=== PATIENT | male | born 1960 ===

== ENCOUNTER 2018-09-14 15:27 | Day surgery (SDC) | payer OTHER ==
[2018-09-14] MEDS ORDERED: fentaNYL 100 MCG/2 ML INJ IVP ONE (15:33)
[2018-09-14] MEDS ORDERED: TDAP ADULT 0.5 ML INJ (BOOSTRIX) IM ONE (15:34)
[2018-09-14] MEDS ORDERED: NS 1,000 ML IV ONE (15:34)
--- NOTE | 2018-09-14 15:36 | EDPHY ---
H & P Time Seen by Provider: 09/14/18 15:33 HPI/ROS: CHIEF COMPLAINT: Cut hand with table saw HISTORY OF PRESENT ILLNESS: This is a 57-year-old male in general good health who presents shortly after cutting 3 fingers on his left hand with a table saw. He was trying to restore a pop-up camper. He is right-hand dominant. The involved fingers are his long finger, ring finger, and small finger. He denies other injuries. REVIEW OF SYSTEMS: A ten system review of systems was performed and is negative with the exception of the items mentioned in the HPI. Past medical history: Negative Past surgical history: Negative Social history: He lives with his . He drinks 2 glasses of wine nightly. He quit smoking cigarettes 11 years ago. He works in [employer] for a [employer]. He is originally from [place], has lived in the [place] for 25 years. General Appearance: Alert. Vital signs reviewed. Focused exam performed. BP 154/86 at triage. Respiratory: Lungs are clear to auscultation; no wheezes, rales, or rhonchi. Cardiovascular: Regular rate and rhythm; no murmur, rub, or gallop. Gastrointestinal: Abdomen is soft and nontender, no masses or organomegaly, bowel sounds normal. Skin: Warm and diaphoretic on arrival, no rashes on exposed skin, normal color. Extremities: 4 cm laceration on the palmar aspect of the left long finger distally extending from DIP the length of the pulp. 1/2 cm laceration on the medial distal aspect of the left small finger. Partial amputation of the distal ring finger involving the DIP joint--oblique 4 cm laceration. Mallet type deformity suggesting injury to extensor tendon of the left ring finger, full flexion at MCP, PIP, DIP left long finger but unable to extend at DIP. Nail involvement on the left ring finger. Decreased 2 point discrimination distal left ring finger. Otherwise sensation intact to light touch over the digits of the left hand. FAROM left wrist, elbow, shoulder. Pulses: Brisk capillary refill all digits of left hand except for left ring finger which has slightly sluggish cap refill. Two plus radial pulse left. Neurological: Alert and oriented. Moving all four extremities easily and equally. Psychiatric: Normal affect. (Babs Davila) Constitutional: Initial Vital Signs Temperature (C) 36.6 C 09/14/18 15:31 Heart Rate 64 09/14/18 15:31 Respiratory Rate 16 09/14/18 15:31 Blood Pressure 154/86 H 09/14/18 15:31 O2 Sat (%) 96 09/14/18 15:31 O2 Delivery Mode Room Air Allergies/Adverse Reactions: No Known Allergies Allergy (Unverified 09/14/18 15:36) Home Medications: Medication Instructions Recorded NK [No Known Home Meds] 09/14/18 Medical Decision Making ED Course/Re-evaluation: 57-year-old male table saw injury to his left, non dominant, hand. He has partial amputation of the distal ring finger with bone involved and extensor tendon involvement. He has a laceration and, I believe, a tuft fracture of the long finger and a small fracture on the pinky finger. No other tendon injuries identified. No apparent vascular injuries. I spoke with Dr. Fox, hand surgeon, who would like to evaluate this patient in the emergency department at [facility]. The patient received 1 L IV normal saline, fentanyl 100 mcg IV, Ancef 1 g IV, and a Boostrix tetanus update in the emergency department at [facility]. His hand was wrapped in sterile gauze soaked in saline, covered with Kerlix. His will drive him to the emergency department. He has been advised that he should not eat or drink anything EN route. He last ate around 12 :30 noon. He remained stable while in the department. (Babs Davila) Differential Diagnosis: I considered a differential diagnosis that includes but is not limited to amputation either complete or partial, fracture, dislocation, tendon injury, vascular injury, nerve injury. (Babs Davila) - Data Points Medications Given: Discontinued Medications Diphtheria/Tetanus/Acell Pertussis (Boostrix) 0.5 ml IM .ONCE ONE Stop: 09/14/18 15:35 Last Admin: 09/14/18 15:47 Dose: 0.5 ml Fentanyl (Sublimaze) 100 mcg IVP EDNOW ONE Stop: 09/14/18 15:34 Last Admin: 09/14/18 15:43 Dose: 100 mcg Cefazolin Sodium/Dextrose (Ancef 1 Gm (Premix)) 50 mls @ 200 mls/hr IV EDNOW ONE PRN Reason: Protocol Stop: 09/14/18 15:48 Last Admin: 09/14/18 16:00 Dose: 50 mls Sodium Chloride (Ns) 1,000 mls @ 0 mls/hr IV EDNOW ONE; Wide Open PRN Reason: Protocol Stop: 09/14/18 15:35 Last Admin: 09/14/18 15:40 Dose: 1,000 mls Cefazolin Sodium/Dextrose (Ancef 1 Gm (Premix)) 50 mls @ 200 mls/hr IV ONCALL ONE PRN Reason: Protocol Stop: 09/14/18 19:05 Last Admin: 09/14/18 19:03 Dose: 50 mls Departure - Departure Disposition: To OP Cath/Surgery Clinical Impression: Partial traumatic transphalangeal amputation of finger Qualifiers: Encounter type: initial encounter Qualified Code(s): S68.629A - Partial traumatic transphalangeal amputation of unspecified finger, initial encounter Finger laceration involving tendon Qualifiers: Encounter type: initial encounter Qualified Code(s): S61.219A - Laceration without foreign body of unspecified finger without damage to nail, initial encounter Finger laceration Qualifiers: Encounter type: initial encounter Finger: little finger Damage to nail status: without damage Foreign body presence: without foreign body Laterality: left Qualified Code(s): S61.217A - Laceration without foreign body of left little finger without damage to nail, initial encounter Condition: Good
[2018-09-14] MEDS ORDERED: NS 100 ML BAG IV ONE (15:39)
[2018-09-14] MEDS ORDERED: ceFAZolin 1 GM VIAL ONE (15:39)
--- NOTE | 2018-09-14 17:06 | EDPHY ---
H & P Stated Complaint: cut fingers with saw Time Seen by Provider: 09/14/18 15:33 HPI/ROS: CHIEF COMPLAINT: Partial amputation HISTORY OF PRESENT ILLNESS: Patient is a 57-year-old man who comes to the emergency department complaining of partial amputation and finger laceration to his left hand. He was injured while using a table saw few hours ago. He initially went to the free-standing emergency department where x-rays were done. He was also given tetanus and antibiotics. They consulted hand surgeon on-call Dr. Fox who requests the patient come here for evaluation and repair possibly in the OR. Severity: Severe Modifying factors: None REVIEW OF SYSTEMS: Constitutional: denies: chills, fever, recent illness, recent injury EENTM: denies: blurred vision, double vision, nose congestion Respiratory: denies: cough, shortness of breath Cardiac: denies: chest pain, irregular heart rate, lightheadedness, palpitations Gastrointestinal/Abdominal: denies: abdominal pain, diarrhea, nausea, vomiting, blood streaked stools Genitourinary: denies: dysuria, frequency, hematuria, pain Musculoskeletal: See HPI Skin: See HPI Neurological: denies: headache, numbness, paresthesia, tingling, dizziness, weakness Hematologic/Lymphatic: denies: blood clots, easy bleeding, easy bruising Immunologic/allergic: denies: HIV/AIDS, transplant 10 systems reviewed and negative except as noted EXAM: GENERAL: Well-appearing, well-nourished and in no acute distress. HEAD: Atraumatic, normocephalic. EYES: Pupils equal round and reactive to light, extraocular movements intact, sclera anicteric, conjunctiva are normal. ENT: oropharynx clear without exudates. Moist mucous membranes. NECK: Normal range of motion, supple without lymphadenopathy or JVD. LUNGS: Breath sounds clear HEART: Regular rate and rhythm ABDOMEN: Soft, nontender, normoactive bowel sounds. No guarding, no rebound. No masses appreciated. BACK: No CVA tenderness EXTREMITIES: Left hand currently dressed with gauze. Left intact. No wrist or elbow injury. No other injuries. NEUROLOGICAL: Cranial nerves II through XII grossly intact. Normal speech, normal gait. 5/5 strength, normal movement in all extremities, normal sensation , normal reflexes PSYCH: Normal mood, normal affect. SKIN: See above Source: Patient Exam Limitations: No limitations - Personal History Current Tetanus Diphtheria and Acellular Pertussis (TDAP): No - Medical/Surgical History Hx Asthma: No Hx Chronic Respiratory Disease: No Hx Diabetes: No Hx Cardiac Disease: No Hx Renal Disease: No Hx Cirrhosis: No Hx Alcoholism: No Hx HIV/AIDS: No Hx Splenectomy or Spleen Trauma: No Other PMH: none - Family History Significant Family History: No pertinent family hx - Social History Smoking Status: Never smoked Alcohol Use: None Constitutional: Initial Vital Signs Temperature (C) 36.6 C 09/14/18 15:31 Heart Rate 64 09/14/18 15:31 Respiratory Rate 16 09/14/18 15:31 Blood Pressure 154/86 H 09/14/18 15:31 O2 Sat (%) 96 09/14/18 15:31 O2 Delivery Mode Room Air Allergies/Adverse Reactions: No Known Allergies Allergy (Unverified 09/14/18 15:36) Home Medications: Medication Instructions Recorded NK [No Known Home Meds] 09/14/18 Medical Decision Making - Diagnostics Imaging Results: Imaging Impressions Hand X-Ray 09/14/18 15:34 Impression: 1. Fracture fragments ventral aspect of the third distal phalanx. 2. Fracture fragments along the dorsal aspect fourth digit around the DIP joint. 3. Flexion of the fourth digit at the DIP joint probably from extensor tendon injury. Imaging: Discussed imaging studies w/ call or contact centre manager Radiologist ED Course/Re-evaluation: Contacted Dr. Fox who was on his way to evaluate. He requests the patient remain NPO. 5:50 p.m. the patient seen by Dr. Fox who will plan to take him to the OR. Differential Diagnosis: Partial list of the Differential diagnosis considered include but were not limited to; laceration, fracture, vascular injury, nerve injury and although unlikely based on the history and physical exam, I also considered infection. - Data Points Medications Given: Discontinued Medications Diphtheria/Tetanus/Acell Pertussis (Boostrix) 0.5 ml IM .ONCE ONE Stop: 09/14/18 15:35 Last Admin: 09/14/18 15:47 Dose: 0.5 ml Fentanyl (Sublimaze) 100 mcg IVP EDNOW ONE Stop: 09/14/18 15:34 Last Admin: 09/14/18 15:43 Dose: 100 mcg Cefazolin Sodium/Dextrose (Ancef 1 Gm (Premix)) 50 mls @ 200 mls/hr IV EDNOW ONE PRN Reason: Protocol Stop: 09/14/18 15:48 Last Admin: 09/14/18 16:00 Dose: 50 mls Sodium Chloride (Ns) 1,000 mls @ 0 mls/hr IV EDNOW ONE; Wide Open PRN Reason: Protocol Stop: 09/14/18 15:35 Last Admin: 09/14/18 15:40 Dose: 1,000 mls Departure - Departure Disposition: To OP Cath/Surgery Clinical Impression: Partial traumatic transphalangeal amputation of finger Qualifiers: Encounter type: initial encounter Qualified Code(s): S68.629A - Partial traumatic transphalangeal amputation of unspecified finger, initial encounter Finger laceration involving tendon Qualifiers: Encounter type: initial encounter Qualified Code(s): S61.219A - Laceration without foreign body of unspecified finger without damage to nail, initial encounter Finger laceration Qualifiers: Encounter type: initial encounter Finger: little finger Damage to nail status: without damage Foreign body presence: without foreign body Laterality: left Qualified Code(s): S61.217A - Laceration without foreign body of left little finger without damage to nail, initial encounter Condition: Good
--- NOTE | 2018-09-14 18:51 | PDHPUP ---
History & Physical Update H&P update statement: This history and physical update is based on an assessment of the patient which was completed after admission or registration (within 24 hours), but prior to the surgery/procedure. H&P update: H&P reviewed & patient examined, no change in patient's condition since H&P completed
--- NOTE | 2018-09-14 18:54 | PDGENHP ---
History and Physical History and Physical: cc: L hand injury HPI: saw to L hand. Seen in [facility] [place] and transferred to ED PMH: none PE: Gen: A&Ox3 L hand: -long lac volar aspect LF pulp -4cm dorsal oblique lac through nailbed and lateral nail fold with extensor lag -small 5mm lac A/P: LSF, LLF, LRF saw injuries with open laceration and LRF nailbed injury with open DIP joint and extensor tendon lac -plan OR
[2018-09-14 21:26] VITALS: BP 151/100
--- NOTE | 2018-09-14 22:51 | GOP ---
[f rep st] OPERATIVE REPORT DATE OF OPERATION: 09/14/2018 SURGEON: Chele Fox MD ANESTHESIA: Local 1% lidocaine and 0.5% Marcaine performed by me, 20% total of 50:50 combination performed in the preoperative area. PREOPERATIVE DIAGNOSIS: 1. Left small finger 1 cm laceration, deep, involving pulp 2. Left middle finger 5 cm complex laceration, deep, essentially splitting of the left middle finger with involvement of nail and with foreign body, down to bone 3. Left middle finger open distal phalanx fracture. 4. Left ring finger open distal interphalangeal joint fracture dislocation with fractures involving the distal phalanx base and middle phalanx head. 5. 6 cm laceration to the tip of the left ring finger. 6. Saw injury to left small finger, left ring finger and left middle finger 7. Left ring finger open injury to extensor tendon with complete loss of extensor tendon at the DIP joint. POSTOPERATIVE DIAGNOSIS: same PROCEDURE PERFORMED: 1. Left small finger repair of 1 cm deep laceration. 2. Left small finger irrigation and debridement of skin and subcutaneous tissue , and nail bed. 3. Left middle finger irrigation and debridement of skin, subcutaneous tissue, tendon, and bone at the site of open tuft fracture. 4. Left middle finger repair of deep laceration 5 cm in length. 5. Left ring finger irrigation and debridement of skin and subcutaneous tissue , tendon, bone at the site of open distal interphalangeal fracture involving the distal phalanx base and middle phalanx head. 6. Left ring finger primary fusion of DIP joint for traumatic injury FINDINGS: ESTIMATED BLOOD LOSS: 5 cc. INDICATIONS: The patient is a 57-year-old male who sustained this injury earlier today while cutting some wood with a table saw. The wood kicked and the saw struck the above-mentioned digits, sustaining the above-mentioned injuries. He had severe saw injuries to those digits. The ring finger injury, the saw essentially split his finger in half, involving the DIP joint, completely taking out the extensor mechanism and involving the germinal matrix on the lateral nail fold. He was initially seen at the [facility] free-standing ER. I was called by the ER physician. I suggest the patient be transferred to the [facility] ER. I saw and evaluated the patient in the ER, and I made the decision to take him in urgent fashion to the operating room. We discussed risks and benefits of surgery. Risks include bleeding, infection, damage to surrounding structures, stiffness, weakness, wound-healing complications, finger hypersensitivity, risk for future further surgery including possible amputation , nonhealing of fractures. Of note, at that time I did not appreciate the extent of the DIP joint injury based on plain films. My initial plan was for surgical fixation, for which he was consented. DESCRIPTION OF PROCEDURE: Patient seen in the preoperative holding area, was given opportunity to ask any questions. All his questions were answered. Consent was signed. Surgical site was marked. I performed the blocks in the preoperative area, and he was transferred to the operative suite. Care was taken to pad all bony prominences. Time-out was called including surgical and anesthesia teams, confirming the surgical site and procedure to be performed. The left upper extremity was prepped and draped in the usual sterile fashion. Another gram of Ancef was given prior to incision. After prepping and draping, I used the cut- off fingers of gloves as tourniquets. First performed irrigation and debridement. Used rongeur, curette, scissors, and several liters of sterile saline to irrigate all the digits and the above- mentioned injuries. I was able to inspect the injuries after irrigating and debriding. In the case of the middle finger, skin, subcutaneous tissue, bone, this was an open tuft fracture and he has essentially split his tuft in half. I was able to see yellow paint from the saw blade. I irrigated and debrided this aggressively, used a rongeur to debride all the foreign-appearing matter. Small finger had a small 1 cm laceration where the teeth of the saw caught. This involved part of the nail and nail bed. This was all debrided, and I then closed the small finger and closed the middle finger with 4-0 chromic. The middle finger I did not feel that the tuft fracture needed to be stabilized in the way. Then turned my attention to the ring finger. I inspected this. The patient has sheared off half the cartilage off the distal phalanx base. He also fractured off about a third of the ulnar condyle of the middle phalanx head. This joint was completely destabilized, the extensor mechanism was gone. The joint was essentially splayed open and could not be well stabilized with the bone loss. The patient was awake under local. I had a discussion with him. The joint was completely unstable and there was a high chance that he would have pain with the extent of traumatic cartilage loss. I offered at that time the option of primary fusion. I felt this was more reliable. He gave me verbal consent and I proceeded. I then took off the articular cartilage and subchondral bone with a rongeur. I used the [id number] type technique to align the finger. I was happy with the alignment and the prep of the area. Of note, this was all done after aggressive debridement of skin, subcutaneous tissue, bone, and the nail plate. I then proceeded with the fusion. I used a 0.062 K-wire and first placed in the distal phalanx shaft and then parked it onto the middle phalanx head, checked its position. I was happy with the position, and I sent the K-wire down to the base of the middle phalanx. Then I used a 0.045 K-wire to drill 2 vertical holes in the distal middle phalanx. This was vertical. Then I used a 22 angiocath to shuttle a 26-gauge wire for a cerclage-type compression wire. I then tightened after I was happy with the position. I impacted down the buried K-wire and compressed the fusion and then tightened the cerclage wire until I had nice compression. I was very happy with that. Then, I irrigated copiously some more saline. I turned my attention to the closure. I closed the skin with 4-0 and 5-0 chromic. The proximal nail fold was completely disrupted from the saw. I suspect there was some damage to the germinal matrix. I did my best to reconstruct the nail fold. Again, this was fairly damaged with the saw. I was able to cover all soft tissue. I took the tourniquet down, was good perfusion of the fingertip. Sterile dressing was applied. A splint was applied to the ring finger. He tolerated procedure well, and was taken to the PACU in stable condition. POSTOPERATIVE CONDITION: Stable. POSTOPERATIVE PLAN: The patient will follow up with me in a week. We will then change his dressing and follow him radiographically for healing of the fusion. /[id number]/MODL MTDD
--- NOTE | 2018-09-15 02:11 | GCON ---
[f rep st] CONSULTATION REFERRING PHYSICIAN: Jan Castro MD CHIEF COMPLAINT: Saw injury to left hand. HISTORY OF PRESENT ILLNESS: The patient is a 57-year-old man who was brought to the emergency depart ment [place] [facility] after sustaining a saw injury to the long finger, ring finger, and small finger. He was using a table saw at home. The wood kicked and struck his fingers. He wa s seen in the free[place] [facility] [place], and he was given tetanus and antibiotics. I was consulted, and I requested the patient be transferred to the [facility] ER, and I came to the [facility] ER to evaluate the patient . REVIEW OF SYSTEMS: A 10-point review of systems was negative except as noted above. PAST MEDICAL HISTORY: None. PAST SURGICAL HISTORY: None. SOCIAL HISTORY: He is not a smoker. FAMILY HISTORY: Noncontributory. OBJECTIVE/EXAM: GENERAL: He is alert and oriented, in no apparent distress. RIGHT HAND: What is v isible, there is about a 1 cm laceration to the ulnar aspect of the small finger pulp. There is a 5 cm longitudinal laceration through the pulp of the long finger that extends around into the nail, inv olving part of the nail bed at the lateral nail fold. The injury to the ring finger is the most kiki re. There is about a 7 cm laceration that is essentially splitting the tip of the ring finger throug h the DIP joint in half longitudinally. There is visible bone. The finger has an extensor lag. Flex ion appears intact. He has intact sensation to light touch in all the digits. Flexor and extensor t endons are intact of the long finger and small finger. Flexor tendon appears intact for the ring fin regino, but again, he has an extensor lag. IMAGING: X-rays of the hand were reviewed. There is a tuft fracture nondisplaced of the long finger . Ring finger: There appears to be a fracture through the DIP joint that appears to involve part of the joint. ASSESSMENT/PLAN: Saw injury to right long finger, ring finger, and small finger with open fracture o f the distal phalanx of the long finger and distal interphalangeal joint fracture dislocation of the ring finger. I and D and surgical fixation are indicated. Discussed risks and benefits with the pat ient. He wished to proceed. He was taken to the OR. /[id number]/MODL
== END 2018-09-14 21:25 | disposition home or self-care (01) ==
LOC: CED 15:27 → FSGY 18:33
PROVIDERS: ATTEND Orthopaedic Surgery Hand Surgery
DX: S68.625A Partial traumatic transphalangeal amputation of left ring finger, initial encounter (principal); S62.613A Displaced fracture of proximal phalanx of left middle finger, initial encounter for closed fracture; S61.317A Laceration without foreign body of left little finger with damage to nail, initial encounter; W31.2XXA Contact with powered woodworking and forming machines, initial encounter; Y93.H9 Activity, other involving exterior property and land maintenance, building and construction; Y92.009 Unspecified place in unspecified non-institutional (private) residence as the place of occurrence of the external cause; Z23 Encounter for immunization
CPT/HCPCS: 73130-PO; C1713; J0690; J3010

== ENCOUNTER → 2018-11-07 | Outpatient (CLI) | payer OTHER | LOC: BMCIMAGING 11:05 ==